=== PATIENT | female | born 1955 | race Caucasian/White ===

== ENCOUNTER 2016-03-03 08:03 | Day surgery (SDC) | payer OTHER ==
[2016-02-29 10:35] VITALS: BMI 35.2
[2016-03-03] MEDS ORDERED: PROPOFOL 20 ML ONE ×2 (08:08)
[2016-03-03 10:26] VITALS: BP 118/63; PULSE 71; TEMP 98.3
== END 2016-03-03 10:10 | disposition home or self-care (01) ==
LOC: FASU-ENDO 08:03
PROVIDERS: ATTEND Internal Medicine Gastroenterology
PROC: 0DJD8ZZ Inspection of Lower Intestinal Tract, Via Natural or Artificial Opening Endoscopic (ICD-10-PCS; principal; 2016-03-03 09:01)
DX: Z86.010 Personal history of colon polyps (principal)

== ENCOUNTER 2022-08-04 10:35 | Day surgery (SDC) | payer BC ==
[2022-08-01 11:50] VITALS: BMI 38.9
[2022-08-04] MEDS ORDERED: ONDANSETRON 4 MG/2 ML VIAL ONE (11:59)
[2022-08-04 12:36] VITALS: RESP 20
[2022-08-04 12:53] VITALS: BP 135/77; PULSE 62; TEMP 97.2
== END 2022-08-04 13:10 | disposition home or self-care (01) ==
LOC: FASU-ENDO 10:35
PROVIDERS: ATTEND Internal Medicine Gastroenterology
PROC: 0DJD8ZZ Inspection of Lower Intestinal Tract, Via Natural or Artificial Opening Endoscopic (ICD-10-PCS; principal; 2022-08-04 11:47)
DX: Z12.11 Encounter for screening for malignant neoplasm of colon (principal); K57.30 Diverticulosis of large intestine without perforation or abscess without bleeding; Z86.010 Personal history of colon polyps